=== PATIENT | male | born 1955 | race Caucasian/White ===

== ENCOUNTER → 2024-08-28 | Outpatient (CLI) | payer MEDICARE ==
--- NOTE | 2024-08-28 08:28 | US ---
EXAMINATION TYPE: US prostate transrectal DATE OF EXAM: 08/28/2024 COMPARISON: NONE CLINICAL INDICATION: Male, 69 years old with history of R97.20 ELEVATED PSA; difficulty fully voiding in the morning, flow has decreased TECHNIQUE: Grayscale and color Doppler imaging of the prostate gland. This examination was performed using the transrectal probe. EXAM MEASUREMENTS: Gland Size: 6.3 x 6.0 x 4.4cm Volume: 87.3 Predicted PSA: 10.5 Actual PSA (if available):9.0 - per patient Enlarged heterogeneous glad and with no focal abnormality seen IMPRESSION: 1. No suspicious masses visualized. 2. Note that prostate MRI is a more sensitive exam for the detection of clinically significant prost ate adenocarcinoma. Predicted PSA = volume x 0.12 ng/ml Calculated Volume = 0.5236 x L x W x [facility], , 08/28/2024 8:26 AM
== END | disposition home or self-care (01) ==
LOC: RADUSWWP 06:45
PROVIDERS: ATTEND Internal Medicine
DX: R97.20 Elevated prostate specific antigen [PSA] (principal)
CPT/HCPCS: 76872